=== PATIENT | female | born 1975 | race Caucasian/White ===

== ENCOUNTER → 2017-01-11 | Outpatient (CLI) | payer OTHER ==
--- NOTE | 2017-01-11 09:35 | REPMRS ---
Patient History The patient states she had a clinical breast exam in May 2016. Family history of breast cancer in paternal aunt at age 41. Digital Mammo Diagnostic Bilateral: January 11, 2017 - Exam #: [id number] Bilateral CC and MLO view(s) were taken. Technologist: Do Higuera, Technologist FINDINGS: The breast tissue is heterogeneously dense. This may lower the sensitivity of mammography. There is no evidence of cancer on this mammogram. ASSESSMENT: BI-RADS/ACR category 2 mammogram. Benign finding(s). Given the patient's dense breast parechyma and family history, consideration should be made for MRI of the breasts. Recommendation Routine screening mammogram of both breasts in 1 year (for women over age 40). This mammogram was interpreted with the aid of an FDA-approved computer-aided dectection system. Electronically Signed By: Juancarlos Yuen MD 01/11/17 0925
== END ==
LOC: M RAD 09:00
PROVIDERS: ATTEND Family Medicine
DX: Z12.31 Encounter for screening mammogram for malignant neoplasm of breast (principal)

== ENCOUNTER → 2018-10-10 | Outpatient (REF) | payer OTHER | LOC: M SFHCLERA 14:22 | DX: R35.0 Frequency of micturition (principal) ==

== ENCOUNTER → 2018-10-10 | Outpatient (CLI) | payer OTHER | LOC: M LRY 14:33 | DX: R35.0 Frequency of micturition (principal); R10.9 Unspecified abdominal pain | CPT/HCPCS: 87086 ==

== ENCOUNTER → 2019-08-15 | Outpatient (REF) | payer OTHER ==
[2019-08-15 22:22] LABS: CHLAMYDIA DNA AMPLIFICATION NEGATIVE (NEGATIVE); GC DNA AMPLIFICATION NEGATIVE (NEGATIVE)
== END ==
LOC: M SFHCLERA 16:34
PROVIDERS: ATTEND Nurse Practitioner Family
DX: R30.0 Dysuria (principal)
CPT/HCPCS: 81002; 81025; 87070; 87086; 87661; G0463

== ENCOUNTER → 2019-12-22 | Outpatient (REF) | payer OTHER | LOC: M SFHCLERA 12:16 | PROVIDERS: ATTEND Physician Assistant | DX: J02.9 Acute pharyngitis, unspecified (principal) ==

== ENCOUNTER → 2022-10-13 | Outpatient (REF) | LOC: M LAB 15:18 | PROVIDERS: ATTEND Nurse Practitioner Adult Health | DX: Z02.1 Encounter for pre-employment examination (principal) ==

== ENCOUNTER → 2022-12-29 | Outpatient (REF) | LOC: M EMP 11:49 | PROVIDERS: ATTEND Family Medicine | DX: Z11.52 Encounter for screening for COVID-19 (principal) ==

== ENCOUNTER → 2023-01-16 | Outpatient (REF) | LOC: M EMP 09:43 | PROVIDERS: ATTEND Family Medicine | DX: Z11.52 Encounter for screening for COVID-19 (principal) ==

== ENCOUNTER → 2023-01-20 | Outpatient (REF) | LOC: M EMP 08:03 | PROVIDERS: ATTEND Family Medicine | DX: Z11.52 Encounter for screening for COVID-19 (principal) ==

== ENCOUNTER → 2023-04-26 | Outpatient (REF) | LOC: M EMP 10:48 | PROVIDERS: ATTEND Family Medicine | DX: Z20.822 Contact with and (suspected) exposure to COVID-19 (principal) ==

== ENCOUNTER → 2023-05-01 | Outpatient (REF) ==
[2023-05-01 13:35] LABS: RSV AMPLIFICATION NEGATIVE (NEGATIVE)
== END ==
LOC: M EMP 12:37
PROVIDERS: ATTEND Family Medicine
DX: Z20.822 Contact with and (suspected) exposure to COVID-19 (principal)

== ENCOUNTER → 2023-05-03 | Outpatient (REF) ==
[2023-05-03 10:04] LABS: RSV AMPLIFICATION NEGATIVE (NEGATIVE)
== END ==
LOC: M EMP 08:20
PROVIDERS: ATTEND Family Medicine
DX: Z20.828 Contact with and (suspected) exposure to other viral communicable diseases (principal)

== ENCOUNTER → 2024-07-23 | Outpatient (REF) | LOC: M EMP 08:44 | PROVIDERS: ATTEND Family Medicine | DX: Z11.52 Encounter for screening for COVID-19 (principal) ==

== ENCOUNTER → 2024-08-16 | Outpatient (REF) | LOC: M EMP 16:20 | PROVIDERS: ATTEND Family Medicine | DX: Z11.52 Encounter for screening for COVID-19 (principal) ==

== ENCOUNTER 2025-05-19 11:10 | Observation (INO) | payer OTHER ==
[~2025-05-19] VITALS: Ht 167.6 cm; Wt 78.6 kg
[2025-05-19] MEDS ORDERED: ISOVUE-370 76% 100 ML VIAL As Ordered ONE (11:31)
[2025-05-19 11:44] LABS: BASO # 0.1 10^3/uL (0.0-0.2); BASO % 1.4 % (0.0-1.0); EOS # 0.2 10^3/uL (0.0-0.5); EOS % 3.3 % (0.0-3.0); LYMPH # 1.6 10^3/uL (1.5-5.0); LYMPH % 31.2 % (24.0-44.0); MONO # 0.4 10^3/uL (0.0-0.8); MONO % 8.3 % (2.0-8.0); NEUTROPHILS # 2.8 10^3/uL (1.5-8.5); NEUTROPHILS % 55.6 % (36.0-66.0); PLATELET COUNT, AUTOMATED 406 10^3/uL (150-450)
[2025-05-19 12:00] LABS: INR 0.87
[2025-05-19 12:17] LABS: HCG, SERUM QUALITATIVE NEGATIVE (NEGATIVE)
[2025-05-19 12:20] LABS: CALCIUM LEVEL 9.8 MG/DL (8.5-10.1); CARBON DIOXIDE LEVEL 27 MMOL/L (20-31); CHLORIDE LEVEL 101 MMOL/L (98-107); CREATININE FOR GFR 0.78 MG/DL (0.55-1.30); GLOMERULAR FILTRATION RATE > 90.0 (>58); POTASSIUM SERUM 4.4 MMOL/L (3.5-5.1); SODIUM LEVEL 139 MMOL/L (136-145)
[2025-05-19] MEDS: NS (Normal Saline) 0.9% 1,000 ML IV SCH (12:47)
[2025-05-19] MEDS ORDERED: MELO7.5T35 PO (12:54)
[2025-05-19] MEDS ORDERED: IBUP80TA PO (12:54)
[2025-05-19] MEDS ORDERED: FERR324T2 PO (12:54)
[2025-05-19] MEDS ORDERED: CYCL5TAB4 PO (12:54)
[2025-05-19] MEDS ORDERED: HOME MED LIST COMPLETE! XX SCH (12:55)
[2025-05-19] MEDS: ASPIRIN 325 MG TAB PO ONE (14:15)
[2025-05-19] MEDS ORDERED: ACETAMINOPHEN 325 MG TAB PO PRN (14:25)
[2025-05-19 14:58] LABS: CHOLESTEROL LEVEL 237 MG/DL (<200); CHOLESTEROL RISK RATIO 4.16 (<5); IRON (FE) 30 UG/DL (50-170); LDL CHOLESTEROL 134.5 MG/DL (<100); NON-HDL-C 180.1 MG/DL; PERCENT SATURATION 7.2 % (13.2-45.0); TRIGLYCERIDES LEVEL 228 MG/DL (<150)
[2025-05-19 15:01] LABS: VITAMIN B12 LEVEL 844 PG/ML (211-911)
[2025-05-19 15:36] LABS: ESTIMATED AVERAGE GLUCOSE 100.0 MG/DL (60-110)
[2025-05-19 15:38] VITALS: TEMP 98
[2025-05-19] MEDS: ATORVASTATIN 20 MG TAB PO ONE (15:50)
[2025-05-19 15:53] VITALS: BP 97/58
[2025-05-19 17:23] VITALS: O2SAT 100
[2025-05-19] MEDS ORDERED: ENOXAPARIN 40 MG/0.4 ML SYRINGE (J1650 PER 10MG) SC SCH (21:00)
[2025-05-19] MEDS ORDERED: TOPIRAMATE 25 MG TAB PO SCH (21:00)
[2025-05-20] MEDS ORDERED: ATORVASTATIN 20 MG TAB PO SCH (09:00)
[2025-05-20] MEDS ORDERED: ASPIRIN 81 MG CHEWABLE TABLET PO SCH (09:00)
== END 2025-05-19 17:47 | disposition left against medical advice (07) ==
LOC: M ED 11:10 → M ED INP 11:11
PROVIDERS: ADMIT Internal Medicine; ATTEND Internal Medicine
DX: R51.9 Headache, unspecified (principal); R42 Dizziness and giddiness; H53.9 Unspecified visual disturbance; E78.5 Hyperlipidemia, unspecified; I10 Essential (primary) hypertension; D50.9 Iron deficiency anemia, unspecified; M79.602 Pain in left arm; G43.909 Migraine, unspecified, not intractable, without status migrainosus; M43.16 Spondylolisthesis, lumbar region; Z79.899 Other long term (current) drug therapy
CPT/HCPCS: 70450; 70496; 70498; 71045; 80047; 80048; 80061; 82607; 82728; 82746; 83036; 83550; 84703; 85025; 85046; 85610; 85730; 86850; 86900; 86901; 93005; 93041; 94760; 96361; 96374; 97161; 99291; J2765; Q9967

== ENCOUNTER 2025-05-23 07:14 | Outpatient (CLI) | payer OTHER ==
[~2025-05-23] VITALS: Ht 165.1 cm; Wt 78.6 kg
[~2025-05-23 07:14] MED LIST: CYCL5TAB4 PO; FERR324T2 PO; IBUP80TA PO; MELO7.5T35 PO
[2025-05-23 07:30] VITALS: BP 135/62; O2SAT 97
[2025-05-23] MEDS: IRON SUCROSE 200 MG IVP IV ONE (08:13)
[2025-05-23 09:20] VITALS: BP 118/75; O2SAT 99
== END 2025-05-23 09:15 | disposition home or self-care (01) ==
LOC: M INFU 07:14
PROVIDERS: ATTEND Physician Assistant
DX: E61.1 Iron deficiency (principal); Z88.0 Allergy status to penicillin
CPT/HCPCS: 96365; J1756

== ENCOUNTER 2025-07-10 15:35 | Outpatient (CLI) | payer OTHER ==
[~2025-07-10] VITALS: Ht 167.6 cm; Wt 78.6 kg
[2025-07-10 15:35] VITALS: BP 117/78; O2SAT 96
[~2025-07-10 15:35] MED LIST changes: +ALBUTEROL SULFATE 2.5 MG/0.5 ML INH CONCENTRATE NEB SOLN INH PRN; +EPINEPHrine INJ 1 MG/ML 1ML AMP IM PRN; +diphenhydrAMINE 50 MG/ML VIAL IV PRN
[2025-07-10] MEDS: IRON SUCROSE 200 MG IVP IV ONE (15:46)
[2025-07-10 16:18] VITALS: BP 105/67; O2SAT 96
== END 2025-07-10 16:20 | disposition home or self-care (01) ==
LOC: M INFU 15:35
PROVIDERS: ATTEND Physician Assistant
DX: D50.9 Iron deficiency anemia, unspecified (principal); Z88.0 Allergy status to penicillin
CPT/HCPCS: 96374; J1756